=== PATIENT | male | born 1995 | race Caucasian/White ===

== ENCOUNTER 2024-12-02 19:29 | Emergency (ER) | payer BC, SELFPAY ==
[2024-12-02 19:30] VITALS: BP 168/95
[2024-12-02 19:44] LABS: % Basophils 0.7 % (0-2); % Immature Granulocytes 0.1 % (0-0.5); % Lymphocytes 44.4 % (20.5-51.1); % Monocytes 6.6 % (1.7-9.3); % Neutrophils 45.2 % (42.2-75.2); Absolute Basophils 0.1 10^3/uL (0-0.2); Absolute Eosinophils 0.2 10^3/uL (0-0.7); Absolute Lymphocytes 3.4 10^3/uL (1.2-3.4); Absolute Monocytes 0.5 10^3/uL (0.1-0.6); Absolute Neutrophils 3.4 10^3/uL (1.4-6.5); Hematocrit 41.1 % (39.0-52.0); Hemoglobin 14.3 g/dL (13.0-18.0); Mean Corp Hgb Conc. 34.8 g/dL (33.0-37.0); Mean Corpuscular Hgb 28.7 pg (27.0-31.0); Mean Corpuscular Volume 82.5 fL (80.0-94.0); Mean Platelet Volume 10.3 fL (7.4-10.4); Nucleated Red Blood Cells % 0 % (-); Platelet Count 194 10^3/uL (130-400); Red Blood Cell Count 4.98 10^6/uL (4.70-6.10); Red Cell Dist. Width 12.8 % (11.5-14.5); White Blood Cell Count 7.6 10^3/uL (4.8-10.8)
[2024-12-02 20:04] LABS: ALT (SGPT) 52 U/L (0-50); AST (SGOT) 35 U/L (17-59); Albumin 5.2 g/dl (3.5-5.0); Alkaline Phosphatase 40 U/L (38-126); Blood Urea Nitrogen 19 mg/dl (9-20); Calcium 9.9 mg/dl (8.4-10.2); Carbon Dioxide 27 mmol/L (22-30); Chloride 103 mmol/L (98-107); Glucose 100 mg/dl (70-99); Potassium 4.4 mmol/L (3.5-5.1); Sodium 141 mmol/L (135-145); Total Bilirubin 0.6 mg/dl (0.2-1.3); eGFR > 60.00
--- NOTE | 2024-12-02 22:43 | ED.GENMED ---
History of Present Illness
General
Chief Complaint: Throat Problem
Source: patient
Exam Limitations: none
Time Seen by Provider: 12/02/24 22:26
Nursing documentation reviewed up to this point in time: agreed with
History of Present Illness
History of Present Illness:
Pleasant 29-year-old male presents to the emergency department with a lump on the front right side of his neck. He states that he noticed this a few several weeks ago but it has progressively been enlarging went to urgent care 3 days ago and had a
strep test which was negative. Patient denies sore throat denies fever or chills. Denies changes in his voice. Reports no difficulty swallowing. Denies drooling or oral pain. Denies chest pain or shortness of breath
Review of Systems
Review of Systems
Allergies reviewed?: Yes
All Other Systems: ROS reviewed and negative except as documented in HPI and ROS
Constitutional: Reports no symptoms; Denies fever, sleep disturbance or chills
EENT: Reports no symptoms; Denies sore throat, mouth pain, mouth swelling or runny nose
Respiratory: Reports no symptoms; Denies cough or trouble breathing
Cardiac: Reports no symptoms
ABD/GI: Reports no symptoms
: Reports no symptoms
Musculoskeletal: Reports no symptoms
Skin: Reports no symptoms
Neurological: Reports no symptoms
Endocrine: Reports no symptoms
Hematologic/Lymphatic: Reports no symptoms
Psychiatric: Reports no symptoms
Phy Exam
General Physical Exam
General Presentation: well appearing and no apparent distress
General Skin: warm and dry
General Habitus: normal
General Mental: alert
General Hydration: appears well hydrated
ENT Exam
ENT Exam: other (Mass on the right side of his neck.)
Eye Exam
Eye Exam: PERRL, cornea clear and conjunctiva normal
Cardiovascular Exam
Cardiovascular Exam: regular rate/rhythm, no edema, no murmur and normal peripheral pulses
Pulmonary Exam
Pulmonary Exam: lungs clear, no respiratory distress, no rales, no crackles, no rhonchi, no stridor, no wheezing and no cough
Gastrointestinal Exam
Gastrointestinal Exam: normal bowel sounds, non tender, soft, no organomegaly, no pulsatile mass and non distended
Neurological Exam
Neurological Exam: alert, oriented x3, no motor deficits and speech normal
Musculoskeletal Exam
Musculoskeletal Exam: full ROM and no edema
Skin Exam
Skin Exam: normal color, warm/dry, no rash and no petechia
Psychiatric Exam
Psychiatric Exam: normal mood/affect
Course
Orders/Labs/Results
Orders:
Orders
12/02/24 19:36
Complete Blood Count/With Diff Urgent
Comprehensive Metabolic Panel Urgent
TSH Reflex To Free T4 Urgent
Comment: ADD ON
12/02/24 22:35
Add On- LAB Urgent
Tests Added?: tsh reflex t4
12/02/24 22:42
CT Neck With Iv Contrast Urgent
Comment:
Reason For Exam: frontal mass
Abnormal Lab Results
12/02/24
19:36
Glucose 100 H mg/dl
(70-99)
ALT 52 H U/L
(0-50)
Albumin 5.2 H g/dl
(3.5-5.0)
12/02/24 19:36
12/02/24 19:36
Vital Signs
Initial and Last Documented VS:
Initial Vital Signs
Temp Pulse Resp BP Pulse Ox
98.3 F 75 16 168/95 98
12/02/24 19:30 12/02/24 19:30 12/02/24 19:30 12/02/24 19:30 12/02/24 19:30
Last Documented Vital Signs
Temp Pulse Resp BP Pulse Ox
98.3 F 75 18 168/95 98
12/02/24 19:30 12/02/24 19:30 12/02/24 21:50 12/02/24 19:30 12/02/24 19:30
MDM/Problems Addressed
Differential Diagnosis Includes:
Thyroid mass, parotid mass, sialoadenitis
*Critical Care Note
Total Time (30-74mins, 75-104mins- exclusive of procedures): Not Applicable
Update Note
Update Note:
CT NECK
IMPRESSION:
Low-density collection adjacent to the right thyroid cartilage measuring approximately 2.3 x 1.3 x 3.3 cm. 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 Recommend outpatient follow-up with ENT.
Mildly prominent cervical lymph nodes are likely reactive. Cervical carotid and vertebral arteries are patent, as are both internal jugular veins.
No suspicious lytic or sclerotic lesions within the skull base or cervical spine.
Case finalized on Dec 02 2024 11:25PM ET
ED Attending Note
-
Portions of this chart may have been created with voice recognition software.� Occasional wrong word or��sound alike� substitutions may have occurred due to the inherent limitations of voice recognition software.
Discharge Plan
Departure
Patient Disposition: Home (Routine Discharge)
Date of Disposition: 12/02/24
Time of Disposition: 23:41
Patient with high blood pressure during this ER visit?: Yes
Condition: Fair
Discharge Problem:
Thyroglossal duct cyst
Instructions: BLOOD PRESSURE, Neck pain - ED discharge instructions
Referrals:
NONE,* [Family Provider] -
Leon Ivory MD [Active] -
Activity Restrictions/Additional Instructions:
Please follow-up with ear nose and throat for further evaluation of the neck mass
Thank You for choosing [facility].
It was a pleasure meeting you and taking part in your care. We hope for your continued healing and wellness.
Please read discharge instructions in their entirety. However, they are for general education and may not describe your exact diagnosis at discharge. Information on your ER visit and medical conditions were discussed with you along with appropriate
follow up information...
If indicated, please take your medications as instructed and indicated on discharge paperwork.
Please schedule a follow up appointment as directed. Call to schedule an appointment
Please return to the emergency department with ANY change in, persisting, or worsening of symptoms. If any of your symptoms do not improve, or persist, or become more severe within 6-12 hours, please return to the emergency department for further
care.
Please return to the emergency department if you develop a headache, neck pain/stiffness, fever greater than 100.4F, chest pain, shortness of breath, persistent nausea, vomiting, slurred speech, difficulty walking, numbness/tingling, weakness, signs
of infection or any other symptoms that are worrisome to you.
If you have any questions or concerns please do not hesitate to call the Hospital at or E-mail me directly at [email or web address]
Interventions
Interventions:
*Risk Screen - Suicide Last Done: 12/02/24 19:30
*General Assessment Last Done: 12/02/24 19:30
*Neglect/Abuse Screening Last Done: 12/02/24 19:30
*ED COVID-19 Vaccine History Last Done: 12/02/24 19:30
Discharge Date and Time
Print Language: [id number]
[2024-12-02 23:42] LABS: TSH Reflex To Free T4 2.41 uIU/ml (0.47-4.68)
[2024-12-02 23:54] VITALS: BP 148/95
== END 2024-12-02 23:56 | disposition home or self-care (01) ==
LOC: EMR 19:29
PROVIDERS: Emergency Medicine; EMERGENCY PHYSICIAN Student in an Organized Health Care Education/Training Program
DX: Q89.2 Congenital malformations of other endocrine glands (principal)
CPT/HCPCS: 99284; 70491; 80053; 84443; 85025; Q9967

== ENCOUNTER → 2025-01-28 18:15 | Outpatient (REF) | payer BC, SELFPAY | LOC: CLAB 18:15 | PROVIDERS: ATTENDING PHYSICIAN Otolaryngology Facial Plastic Surgery | DX: Q89.2 Congenital malformations of other endocrine glands (principal) | CPT/HCPCS: 88304 ==